=== PATIENT | male | born 1980 | race Caucasian/White ===

== ENCOUNTER 2025-02-03 21:14 | Emergency (ER) | payer OTHER ==
[~2025-02-03] VITALS: Ht 175.3 cm; Wt 113.6 kg
[2025-02-03] MEDS ORDERED: CARVEDILOL6.25 MG PO (21:18)
[2025-02-03] MEDS ORDERED: PRILOSEC 20MG20 MG PO (21:19)
[2025-02-03] MEDS ORDERED: LEXAPRO20 M1 PO (21:19)
[2025-02-03] MEDS ORDERED: ASPIRIN 81M81 MG/TA2 PO (21:20)
[2025-02-03] MEDS ORDERED: ENTRESTO 49 MG1 EACH PO (21:21)
[2025-02-03] MEDS ORDERED: fentaNYL 100 MCG/2 ML VIAL IV ONE (21:45)
[2025-02-03 21:58] LABS: BASO # 0.04 K/mm3 (0.02-0.10); EOS # 0.06 K/mm3 (0.04-0.40); EOS % 0.5 % (0.0-4.0); HEMATOCRIT 35.7 % (42.0-52.0); HEMOGLOBIN 11.9 g/dL (13.5-18.0); LYMPH# 1.78 K/mm3 (1.50-4.00); MEAN CELL VOLUME 95 fl (78-100); MEAN CORPUSCULAR HEMOGLOBIN 32 pg (27-31); MEAN CORPUSCULAR HGB CONC 33 g/dL (33-37); NEU # 8.81 K/mm3 (1.40-6.50); PLATELET COUNT 303 K/mm3 (130-400); RED BLOOD COUNT 3.77 M/mm3 (4.20-5.60); RED CELL DISTRIBUTION WIDTH 12.3 % (11.5-14.5); WHITE BLOOD COUNT 11.8 K/mm3 (4.8-10.8)
[2025-02-03 22:02] LABS: ALBUMIN 4.2 g/dL (3.5-5.0); URINE COLOR YELLOW (YELLOW)
[2025-02-03 22:03] LABS: CALCIUM 9.4 mg/dL (8.3-10.5); PH-URINE 5.5 (5.0 - 8.0); URINE APPEARANCE SLIGHTLY CLOUDY (CLEAR); URINE BILIRUBIN 1+ (NEGATIVE); URINE BLOOD 2+ (NEGATIVE); URINE GLUCOSE NEGATIVE (NEGATIVE); URINE KETONE NEGATIVE (NEGATIVE); URINE LEUKOCYTE ESTERASE NEGATIVE (NEGATIVE); URINE NITRATE NEGATIVE (NEGATIVE); URINE PROTEIN(semi-quant) 2+ (NEGATIVE)
[2025-02-03 22:04] LABS: TOTAL PROTEIN 7.3 g/dL (6.4-8.3); URINE MUCUS PRESENT (NOT PRESENT)
[2025-02-03 22:06] LABS: TOTAL BILIRUBIN 0.8 mg/dL (0.2-1.2)
[2025-02-03] MEDS ORDERED: Donepezil 5 MG TAB PO SCH (22:25)
[2025-02-03] MEDS ORDERED: QUEtiapine 25 MG TAB PO ONE (22:30)
[2025-02-03] MEDS ORDERED: NS 100 ML IV SCH (22:36)
[2025-02-03] MEDS ORDERED: Iohexol 300 - 100 ML VIAL IV ONE (22:38)
[2025-02-04] MEDS ORDERED: Home HYDROcodone/Acetaminophen 5/325 MG #4 TABS/PACK PO ONE (00:45)
[2025-02-04 00:49] VITALS: BP 122/68
== END 2025-02-04 00:49 | disposition home or self-care (01) ==
LOC: ED 21:14
PROVIDERS: Registered Nurse
DX: S30.0XXA Contusion of lower back and pelvis, initial encounter (principal); S70.11XA Contusion of right thigh, initial encounter; M54.50 Low back pain, unspecified; Z79.82 Long term (current) use of aspirin; W17.89XA Other fall from one level to another, initial encounter
CPT/HCPCS: J3010; Q9967